=== PATIENT | female | born 1960 | race Caucasian/White ===

== ENCOUNTER 2018-09-20 09:03 | Outpatient (CLI) | payer OTHER ==
--- NOTE | 2018-09-20 11:50 | MMO ---
BILATERAL MAMMOGRAMS: History: Screening mammography. Comparison: Multiple exams back to 06-11-15. FINDINGS: Scattered fibroglandular densities and benign appearing calcifications. Intermamillary lymph nodes in each breast are stable. No new dominant mass or suspicious calcifications. This study is interpreted with the assistance of computer aided detection. IMPRESSION: BIRADS category 2 - benign findings. Suggest routine follow up. POS: MICHAEL
== END 2018-09-20 09:04 | disposition home or self-care (01) ==
LOC: SCSMAMMO 09:03
PROVIDERS: ATTEND Family Medicine
DX: Z12.31 Encounter for screening mammogram for malignant neoplasm of breast (principal)
CPT/HCPCS: 77067

== ENCOUNTER 2018-12-21 11:58 | Emergency (ER) | payer OTHER ==
--- NOTE | 2018-12-21 12:42 | RAD ---
Right ankle 3 views HISTORY: Right ankle injury. FINDINGS: Minimally displaced oblique fracture through the distal fibula below the level of the ankle mortise. Overlying soft tissue swelling. Talar dome is maintained. Medial malleolus within normal limits. IMPRESSION: Minimal displacement of a Wright class C fracture right lateral malleolus with overlying s oft tissue swelling.
[2018-12-21] MEDS ORDERED: Ibuprofen 800 MG TAB ONE (13:11)
--- NOTE | 2018-12-21 13:17 | RAD ---
RIGHT ANKLE 3 VIEWS: CLINICAL HISTORY: Post reduction with splint placement. COMPARISON: Comparison is made to exam earlier same day FINDINGS: Splint placement overlies the previously documented distal fibular fracture, with limited detail. Ali gnment is near-anatomic. IMPRESSION: Interval splinting of distal fibular fracture. Transcribed Date/Time: 12/21/2018 1:34 PM
== END 2018-12-21 13:32 | disposition home or self-care (01) ==
LOC: ERS 11:58 → EEVIPCON 11:58 → ERS 13:32
DX: S82.61XA Displaced fracture of lateral malleolus of right fibula, initial encounter for closed fracture (principal); E11.9 Type 2 diabetes mellitus without complications; K21.9 Gastro-esophageal reflux disease without esophagitis; E78.5 Hyperlipidemia, unspecified; I10 Essential (primary) hypertension; G47.30 Sleep apnea, unspecified; E66.9 Obesity, unspecified; Z79.84 Long term (current) use of oral hypoglycemic drugs; X50.9XXA Other and unspecified overexertion or strenuous movements or postures, initial encounter
CPT/HCPCS: 27786